=== PATIENT | female | born 1985 | race Caucasian/White ===

== ENCOUNTER 2020-10-06 18:07 | Emergency (ER) | payer BC, MEDICAID, SELFPAY ==
--- NOTE | ~2020-10-06 | XR_ITS ---
EXAMINATION: XR chest 1V DATE: 10/06/2020 19:14 INDICATION: Facial numbness and dizziness. Hypertension. TECHNIQUE: frontal view of the chest was obtained. COMPARISON: Chest radiograph dated 05/21/2019 FINDINGS: The lungs remain clear with no focal airspace opacities, pulmonary edema, pleural effusion or pneumot horax. The cardiomediastinal silhouette is normal. IMPRESSION: 1. No acute cardiopulmonary disease. Reviewed, dictated and finalized at location A. COVERING CONTRACTOR
--- NOTE | ~2020-10-06 | CT_ITS ---
EXAMINATION: CT brain wo con DATE: 10/06/2020 19:10 INDICATION: Right facial numbness and dizziness TECHNIQUE: Computed tomography (CT) of the head was performed without intravenous contrast. Sagittal and coronal reconstructions were performed. The mA was adjusted according to patient size. Iterative reconstruction technique was employed. The dose-length product was 681.00 mGy-cm. COMPARISON: None FINDINGS: No acute intracranial hemorrhage, acute infarction or abnormal extra axial fluid collection. Ventricl es are normal and symmetric. No mass/mass effect. The orbits, paranasal sinuses and mastoid air cells are normal. IMPRESSION: 1. Normal head CT. Reviewed, dictated and finalized at location A. INSPECTOR IMPRESSION: 1. Normal head CT.
[2020-10-06 18:24] VITALS: BP 132/64; PULSE 69; RESP 20; TEMP 36.8; O2SAT 100
--- NOTE | 2020-10-06 18:28 | ECG_ITS ---
Measurements Intervals [place] Rate: 55 P: 8 DE: 141 QRS: 2 QRSD: 133 T: 7 QT: 429 QTc: 413 Interpretive Statements SINUS BRADYCARDIA RIGHT BUNDLE BRANCH BLOCK ABNORMAL ECG Electronically Signed On 10-06-2020 19:22:41 CERTIFIED MEDICAL BILLER by Elder Corcoran D.O.
[2020-10-06 18:40] LABS: Basophils Percent Auto 0.6 % (0.2-1.2); Eosinophils Absolute Auto 0.2 K/mm3 (0-0.3); Eosinophils Percent Auto 2.1 % (0-4.4); Hematocrit 35.4 % (37.0-47.0); Hemoglobin 10.7 g/dL (12.0-15.0); Immature Granulocyte Absolute 0.01 K/mm3 (0.00-0.031); Immature Granulocyte Percent A 0.1 % (0-0.5); Lymphocytes Absolute Auto 2.51 K/mm3 (0.9-3.2); Lymphocytes Percent Auto 34.7 % (18.3-44.2); Mean Corpuscular HGB Conc 30.2 g/dl (32-36); Mean Corpuscular Volume 79.4 fl (80-100); Mean Platelet Volume 10.5 fl (7.4-10.4); Monocytes Absolute Auto 0.6 K/mm3 (0.1-0.6); Monocytes Percent Auto 7.7 % (2.6-8.5); Neutrophils Percent Auto 54.8 % (45.5-73.1); Platelet Count Result 250 k/mm3 (150-375); Red Blood Count 4.46 M/mm3 (4.2-5.4); Red Cell Distribution Width 15.6 % (11.5-14.5); White Blood Count 7.2 K/mm3 (4.5-10.0)
[2020-10-06 18:49] LABS: Prothrombin Time 13.5 Seconds (11.1-14.7)
[2020-10-06 18:50] LABS: Partial Thromboplastin Time 30.7 SECONDS (22.3-36.8)
[2020-10-06 18:51] LABS: Anion Gap 4 mmol/L (8-16); Blood Urea Nitrogen 13 mg/dL (7-17); Calcium 8.6 mg/dL (8.4-10.2); Carbon Dioxide 26 mmol/L (22-30); Chloride 108 mmol/L (98-107); Estimated CRCL calculation 145 ml/min; Estimated Glomerular Filt Rate > 60; Glucose 81 mg/dL (65-105); Potassium 4.1 mmol/L (3.4-5.0); Sodium 138 mmol/L (137-145)
[2020-10-06 19:03] LABS: Troponin I < 0.012 ng/mL (0.000-0.034)
[2020-10-06 19:51] VITALS: BP 135/73; PULSE 53; RESP 21; O2SAT 100
[2020-10-06 20:05] LABS: Glucose Point of Care 98 (65-105)
--- NOTE | 2020-10-06 20:58 | ED.DIZZY ---
HPI - Dizziness General Chief Complaint: Dizziness Stated Complaint: neuro symptoms x 1 week Time Seen by Provider: 10/06/20 20:43 Source: patient Mode of arrival: ambulatory Limitations: no limitations History of Present Illness HPI Narrative: A 35-year-old female presents to the emergency department with complaints tonight of dizziness and lightheadedness. Patient states has been going on for a couple of days where she goes to stand up and feels very dizzy. She notes that it feels like a spinning to the left. Patient denies any numbness or tingling. She denies any other focal deficits. She has no issues with talking or movements. Patient states that the episodes are intermittent, seem to last for about 5 minutes. She does note moving seems to be a trigger for this. Related Data Allergies Allergy/AdvReac Type Severity Reaction Status Date / Time glimepiride [From Amaryl] Allergy Intermediate Other Verified 10/06/20 19:54 Review of Systems Review of Systems: Narrative: CONSTITUTIONAL: Denies fever, chills, or sweats. EYES: Denies visual changes, redness, or discharge. ENT: Denies rhinorrhea, congestion, sore throat, or otalgia. CARDIOVASCULAR: Denies chest pain, palpitations, or edema. RESPIRATORY: Denies cough or dyspnea. GASTROINTESTINAL: Denies abdominal pain, nausea, vomiting, or diarrhea. GENITOURINARY: Denies dysuria or hematuria. SKIN: Denies rash or itching. MUSCULOSKELETAL: Denies back pain, joint pain, or myalgia. NEUROLOGIC: Denies headache, numbness, or weakness. Endorses dizziness PSYCHIATRIC: Denies anxiety or depression. [facility] Past Medical History Medical History (Updated 10/06/20 @ 21:31 by Gumaro Lozano DO) Diabetes High cholesterol Hypertension Surgical History Surgical History History of gastrectomy Family History Family History Sibling Hypertension Father Diabetes mellitus Social History Social History Smoking status: Former smoker Alcohol intake: never Exam Narrative: Exam Narrative: GENERAL: Well-appearing, well-nourished, and in no acute distress. HEAD: Normocephalic, atraumatic. EYES: PERRLA and EOMI. ENT: Nares clear, no rhinorrhea or epistaxis. Mucous membranes moist. Oropharynx without tonsillar hypertrophy exudate or other lesions. Bilateral TMs pearly hylton nonbulging NECK: Supple. No adenopathy or masses. No carotid bruits or JVD CHEST: Clear to auscultation. No respiratory distress. No wheezes rales or rhonchi HEART: Regular rate and rhythm. No murmur heard. Normal peripheral pulses. ABDOMEN: Soft, nontender, nondistended, normal active bowel sounds. EXTREMITIES: Normal range of motion. No edema. SKIN: Warm, dry, no rash. NEURO: No focal deficits. Alert and oriented x3. Positive [place] with leftward nystagmus. Symmetrical sensation, normal gait, equal strength bilaterally in the upper and lower limbs PSYCH: Normal mood and affect. Course Reevaluation(s) Reevaluation #1: Went into the room to update the patient's to her work-up and reevaluate. During this conversation the patient repeatedly said she needed a work note. I suspect this may have been her original reason for presentation. Time: 21:30 Vital Signs Vital signs: Vital Signs Temperature 36.8 C 10/06/20 18:24 Pulse Rate 69 10/06/20 18:24 Respiratory Rate 20 10/06/20 18:24 Blood Pressure 132/64 10/06/20 18:24 Pulse Oximetry 100 10/06/20 18:24 Temperature 36.8 C 10/06/20 21:11 Pulse Rate 57 L 10/06/20 21:11 Respiratory Rate 16 10/06/20 21:11 Blood Pressure 129/70 10/06/20 21:11 Pulse Oximetry 100 10/06/20 21:11 MDM - Dizziness MDM Narrative Medical decision making narrative: In brief this is a 35-year-old female who presented to the emergency department for complaints of dizziness. Patient had a wor
[2020-10-06 21:11] VITALS: BP 129/70; PULSE 57; RESP 16; TEMP 36.8; O2SAT 100
[2020-10-06] MEDS: ONDANSETRON HCL ODT 4 MG TABLET PO (21:11)
[2020-10-06] MEDS: MECLIZINE HCL 25 MG TABLET PO (21:11)
[2020-10-06 21:32] VITALS: BP 140/70; PULSE 57; RESP 16; TEMP 36.8; O2SAT 100
== END 2020-10-06 21:37 | disposition home or self-care (01) ==
PROVIDERS: Emergency Medicine; Emergency Provider Emergency Medicine; PCP Internal Medicine Infectious Disease
DX: H81.10 Benign paroxysmal vertigo, unspecified ear (principal); E11.9 Type 2 diabetes mellitus without complications; E78.5 Hyperlipidemia, unspecified; I10 Essential (primary) hypertension; Z87.891 Personal history of nicotine dependence; I45.10 Unspecified right bundle-branch block; R00.1 Bradycardia, unspecified
CPT/HCPCS: 36415; 70450; 71045; 80048; 82948; 84484; 85025; 85610; 85730; 93005; 99284; A9270

== ENCOUNTER → 2020-11-17 13:47 | Outpatient (CLI) | payer BC, MEDICAID, SELFPAY ==
--- NOTE | ~2020-11-17 | US_ITS ---
US OB <= 14 weeks fetus DATE: 11/17/2020 14:17 INDICATION: Gestational age determination TECHNIQUE: Real-time imaging and Doppler analysis COMPARISON: None FINDINGS: The uterus measures 14.1 cm height, 8.6 cm anteroposterior and 9.0 cm transverse dimension. There is heterogeneous 4.2 x 5.1 x 5.9 cm mass along the anterior fundic area, which likely represent s a uterine fibroid, much less likely a retroplacental bleed. Live villegas intrauterine gestation. heart rate of 147 bpm. Anterior placenta. Biparietal diameter 2.34 cm; 13 weeks 6 days estimated gestational age Head circumference 9.29 cm; 14 weeks 2 days Abdominal circumference 7.51 cm; 14 weeks 0 days Femur length 0.99 cm; 13 weeks 0 days. Composite age by Hadlock formula is 13 weeks 6 days +/- 1 week. DEON by ultrasound is 05/19/2021, [place] red to 06/21/2021 by LMP. Estimated weight is 78 +/- 11 0.7 g. Head circumference/abdominal circumference 1.24, within normal range of 1.10-1.34. Right ovary measures 6.6 x 4.4 x 4.5 cm with a 2.8 x 2.7 x 3.3 cm cyst. Left ovary is demonstrated. N o pelvic free fluid collection is evident. IMPRESSION: Estimated gestational age of 13 weeks 6 days +/- 1 week; DEON by ultrasound is 05/19/2021 Heterogeneous 4.2 x 5.1 x 5.9 cm mass along the fundic area of the uterus, possibly a uterine fibroid . Follow-up ultrasound imaging is recommended. Reviewed, dictated and finalized at Location A. Reviewed, dictated and finalized at location A. [employer] IMPRESSION: Estimated gestational age of 13 weeks 6 days +/- 1 week; DEON by ult rasound is 05/19/2021 Heterogeneous 4.2 x 5.1 x 5.9 cm mass along the fundic area of the uterus, poss ibly a uterine fibroid. Follow-up ultrasound imaging is recommended.
== END ==
PROVIDERS: Visit Provider Obstetrics & Gynecology
DX: Z34.91 Encounter for supervision of normal pregnancy, unspecified, first trimester (principal); Z3A.13 13 weeks gestation of pregnancy
CPT/HCPCS: 76801

== ENCOUNTER 2020-11-30 13:45 | Emergency (ER) | payer BC, SELFPAY ==
[2020-11-30 13:58] VITALS: BP 132/57; PULSE 71; RESP 20; TEMP 36.6; O2SAT 100
[2020-11-30 14:47] VITALS: BP 126/60; PULSE 70; RESP 20; O2SAT 100
--- NOTE | 2020-11-30 14:50 | ED.ABDPAIN ---
HPI - Abdominal Pain General Chief Complaint: Abdominal Pain Stated Complaint: abd pain- 16 weeks Time Seen by Provider: 11/30/20 14:33 Source: patient Mode of arrival: ambulatory Limitations: no limitations History of Present Illness HPI narrative: Patient is a 35-year-old female, at 16 weeks age of gestation, complaining of lower abdominal pain, 5 out of 10, dull aching, nonradiating started today. Patient denies any vaginal bleeding or discharge. Patient denies any nausea, vomiting, diarrhea, fever or chills. Patient states that she is had care and first trimester ultrasound. Related Data Allergies Allergy/AdvReac Type Severity Reaction Status Date / Time glimepiride [From Amaryl] Allergy Intermediate Other Verified 11/30/20 14:30 Review of Systems Review of Systems: All systems reviewed & are unremarkable except as noted in HPI and below Constitutional: Constitutional: Denies body ache(s), Denies chills, Denies excessive sweating, Denies fatigue, Denies fever(s), Denies headache(s), Denies lethargy, Denies malaise, Denies weakness and Denies weight loss Eyes: Eyes: Denies blurry vision, Denies change in vision and Denies loss of vision ENT: Denies dizziness, Denies ear discharge, Denies headache(s), Denies lip swelling, Denies epistaxis, Denies nasal congestion, Denies neck pain, Denies throat swelling and Denies tongue swelling Cardiovascular: Cardiovascular: Denies chest pain, Denies chest pain at rest, Denies chest pain with activity, Denies diaphoresis, Denies rapid heart rate, Denies edema, Denies irregular heart rhythm, Denies lightheadedness, Denies palpitations, Denies dyspnea and Denies dyspnea on exertion Respiratory: Respiratory: Denies chest congestion, Denies cough, Denies hemoptysis, Denies dyspnea and Denies dyspnea on exertion Gastrointestinal: Gastrointestinal: Denies melena, Denies hematochezia, Denies diarrhea, Denies nausea, Denies vomiting and Denies hematemesis Musculoskeletal: Musculoskeletal: Denies abnormal gait, Denies deformity, Denies joint swelling, Denies limited range of motion, Denies neck pain and Denies numbness Neurologic: Denies Abnormal speech present, Denies abnormal gait, Denies confusion, Denies dizziness, Denies headache(s), Denies focal weakness, Denies loss of vision, Denies numbness, Denies Other visual disturbances, Denies Sensory deficit (Neuro) and Denies weakness Psychiatric: Psychiatric: Denies confusion, Denies depression, Denies auditory hallucinations, Denies homicidal ideation and Denies suicidal ideation Endocrine: Endocrine: Denies cold intolerance, Denies excessive sweating, Denies fatigue, Denies heat intolerance and Denies palpitations Hematologic/Lymphatic: Hematologic/Lymphatic: Denies easy bleeding and Denies easy bruising Allergic/Immunologic: Allergic/Immunologic: Denies lip swelling, Denies throat swelling and Denies tongue swelling PMFSH Past Medical History Medical History (Updated 11/30/20 @ 15:44 by Craig Shen MD) Diabetes High cholesterol Hypertension Surgical History Surgical History History of gastrectomy Family History Family History Sibling Hypertension Father Diabetes mellitus Social History Social History Smoking status: Former smoker Alcohol intake: never Gender identity (if verbalized by the patient): Female Exam Const: General: cooperative, healthy appearing, comfortable, no acute distress, well developed, alert and awake; No confusion Orientation/consciousness: oriented to person, oriented to place, oriented to time, patient oriented x3 and No confusion Limitations: no limitations HENMT: Head: normal to inspection, normocephalic and atraumatic Ears: hearing grossly normal bilaterally, TM normal on the right and TM normal on the le
[2020-11-30 15:00] LABS: Basophils Percent Auto 0.3 % (0.2-1.2); Eosinophils Absolute Auto 0.1 K/mm3 (0-0.3); Eosinophils Percent Auto 0.5 % (0-4.4); Hematocrit 30.6 % (37.0-47.0); Hemoglobin 9.5 g/dL (12.0-15.0); Immature Granulocyte Absolute 0.02 K/mm3 (0.00-0.031); Immature Granulocyte Percent A 0.2 % (0-0.5); Lymphocytes Percent Auto 21.3 % (18.3-44.2); Mean Corpuscular Hemoglobin 23.7 pg (26-34); Mean Corpuscular Volume 76.3 fl (80-100); Mean Platelet Volume 10.5 fl (7.4-10.4); Monocytes Absolute Auto 0.6 K/mm3 (0.1-0.6); Monocytes Percent Auto 5.7 % (2.6-8.5); Neutrophils Absolute Auto 7.1 K/mm3 (1.3-6.7); Platelet Count Result 271 k/mm3 (150-375); Red Blood Count 4.01 M/mm3 (4.2-5.4); Red Cell Distribution Width 16.3 % (11.5-14.5); White Blood Count 9.8 K/mm3 (4.5-10.0)
[2020-11-30 15:11] LABS: Add Urine Microscopic? YES; Appearance Urine Cloudy (Clear); Bacteria Urine Trace /hpf; Bilirubin Urine Negative (Negative); Blood Urine Negative (Negative); Color Urine Yellow (Yellow); Glucose Urine UA Negative (Negative); Ketones Urine Negative (Negative); Leukocyte Esterase Ur Negative LEU/UL (Negative); Mucus Urine Rare /lpf; Nitrate Urine Negative (Negative); Protein Urine 1+ mg/dL (Negative); RBC Urine 0-2 /hpf (0-2); Squamous Epithelial Cell Urine Many /hpf (Few); Transitional Epi Cells Urine Rare /hpf (None Seen); Urobilinogen Urine Negative mg/dL (<2.0); WBC Urine 0-3 /hpf
[2020-11-30 15:14] LABS: Alanine Aminotransferase 11 U/L (4-35); Albumin Level 3.6 g/dL (3.5-5.1); Alkaline Phosphatase 48 U/L (38-126); Anion Gap 6 mmol/L (8-16); Aspartate Amino Transferase 20 U/L (14-36); Bilirubin,Total 0.3 mg/dL (0.2-1.3); Blood Urea Nitrogen 10 mg/dL (7-17); Calcium 8.7 mg/dL (8.4-10.2); Carbon Dioxide 23 mmol/L (22-30); Chloride 109 mmol/L (98-107); Estimated CRCL calculation 175 ml/min; Estimated Glomerular Filt Rate > 60; Glucose 96 mg/dL (65-105); Lipase 96 U/L (23-300); Potassium 3.7 mmol/L (3.4-5.0); Sodium 138 mmol/L (137-145)
[2020-11-30 16:20] VITALS: BP 122/68; PULSE 78; RESP 18; O2SAT 99
== END 2020-11-30 16:21 | disposition home or self-care (01) ==
PROVIDERS: Emergency Provider Emergency Medicine; PCP Internal Medicine Infectious Disease
DX: O26.892 Other specified pregnancy related conditions, second trimester (principal); R10.30 Lower abdominal pain, unspecified; O24.312 Unspecified pre-existing diabetes mellitus in pregnancy, second trimester; O16.9 Unspecified maternal hypertension, unspecified trimester; O99.282 Endocrine, nutritional and metabolic diseases complicating pregnancy, second trimester; E78.00 Pure hypercholesterolemia, unspecified; Z3A.16 16 weeks gestation of pregnancy; Z87.891 Personal history of nicotine dependence; Z90.3 Acquired absence of stomach [part of]
CPT/HCPCS: 36415; 80053; 81001; 81025; 83690; 84702; 85025; 99283

== ENCOUNTER 2021-03-04 08:59 | Outpatient (CLI) | payer BC, SELFPAY ==
--- NOTE | ~2021-03-04 | US_ITS ---
EXAMINATION:US venous doppler LE BI INDICATION:There are scattered pains with bilateral lower extremity pain. TECHNIQUE: Multiple grayscale, color flow and Doppler images of the lower extremity deep venous syste ms were obtained and reviewed. COMPARISON:No prior studies for comparison. FINDINGS: The common femoral, superficial femoral and popliteal veins demonstrate normal respiratory variation, augmentation and compressibility. Color flow is also seen within the posterior tibial, pe roneal, greater saphenous and profunda veins. IMPRESSION: 1: No lower extremity deep venous thrombosis. Reviewed, dictated and finalized at location B.
== END 2021-03-04 09:00 | disposition home or self-care (01) ==
PROVIDERS: PCP Internal Medicine Infectious Disease; Visit Provider Obstetrics & Gynecology Obstetrics
DX: I83.813 Varicose veins of bilateral lower extremities with pain (principal); M79.604 Pain in right leg
CPT/HCPCS: 93970

== ENCOUNTER 2021-04-13 13:21 | Emergency (ER) | payer BC, SELFPAY ==
[2021-04-13] VITALS (12 sets, daily range): BP systolic 149–186; BP diastolic 81–94; PULSE 80–94; RESP 14–25; TEMP 36.8; O2SAT 96–99
--- NOTE | ~2021-04-13 | US_ITS ---
EXAMINATION: US venous doppler LE EXAM DATE: 04/13/2021 16:54 INDICATION: Edema, . Feet swelling. TECHNIQUE: Multiple grayscale, color flow and Doppler images of the lower extremity deep venous syste ms bilaterally were obtained and reviewed. Comparison is made to prior examination from 03/04/2021. FINDINGS: Right side: The right common femoral, femoral and profunda veins demonstrate normal color flow, respi ratory variation, augmentation and compressibility. Compressibility, color flow confirmed within the right popliteal, posterior tibial, peroneal, and greater saphenous veins. Left side: The left common femoral, femoral and profunda veins demonstrate normal color flow, respira tory variation, augmentation and compressibility. Compressibility, color flow confirmed within the l eft popliteal, posterior tibial, peroneal, and greater saphenous veins. IMPRESSION: 1. No lower extremity deep venous thrombosis bilaterally. Reviewed, dictated and finalized at location A.
--- NOTE | ~2021-04-13 | XR_ITS ---
EXAMINATION: XR chest 2V DATE: 04/13/2021 14:07 INDICATION: Cough and congestion TECHNIQUE: PA and lateral views of the chest are obtained. COMPARISON: 10/06/2020 FINDINGS: The lungs are free of acute opacities. There is no pleural effusion or pneumothorax. The ca rdiomediastinal silhouette is normal. There are bridging osteophytes at multiple levels in the spine, consistent with diffuse idiopathic skeletal hyperostosis (DISH). IMPRESSION: 1. No acute cardiopulmonary abnormality. Reviewed, dictated and finalized at location B.
--- NOTE | 2021-04-13 13:51 | ECG_ITS ---
Measurements Intervals [place] Rate: 77 P: -6 PA: 156 QRS: -17 QRSD: 142 T: 9 QT: 393 QTc: 445 Interpretive Statements SINUS RHYTHM RIGHT BUNDLE BRANCH BLOCK BASELINE ARTIFACT- AVR, AVL, AVF ABNORMAL ECG Electronically Signed On 04-13-2021 14:52:32 CDT by Elder Corcoran D.O.
[2021-04-13 14:06] LABS: Basophils Percent Auto 0.3 % (0.2-1.2); Eosinophils Absolute Auto 0.2 K/mm3 (0-0.3); Eosinophils Percent Auto 1.6 % (0-4.4); Hemoglobin 12.9 g/dL (12.0-15.0); Immature Granulocyte Absolute 0.03 K/mm3 (0.00-0.031); Immature Granulocyte Percent A 0.3 % (0-0.5); Lymphocytes Absolute Auto 1.91 K/mm3 (0.9-3.2); Lymphocytes Percent Auto 18.4 % (18.3-44.2); Mean Corpuscular HGB Conc 33.1 g/dl (32-36); Mean Corpuscular Hemoglobin 30.4 pg (26-34); Mean Platelet Volume 9.1 fl (7.4-10.4); Monocytes Absolute Auto 0.7 K/mm3 (0.1-0.6); Monocytes Percent Auto 7.1 % (2.6-8.5); Neutrophils Absolute Auto 7.5 K/mm3 (1.3-6.7); Neutrophils Percent Auto 72.3 % (45.5-73.1); Platelet Count Result 227 k/mm3 (150-375); Red Blood Count 4.24 M/mm3 (4.2-5.4); Red Cell Distribution Width 15.4 % (11.5-14.5); White Blood Count 10.4 K/mm3 (4.5-10.0)
[2021-04-13 14:18] LABS: Anion Gap 5 mmol/L (8-16); Blood Urea Nitrogen 7 mg/dL (7-17); Calcium 9.2 mg/dL (8.4-10.2); Carbon Dioxide 24 mmol/L (22-30); Chloride 108 mmol/L (98-107); Estimated CRCL calculation 231 ml/min; Estimated Glomerular Filt Rate > 60; Glucose 88 mg/dL (65-110); Potassium 3.6 mmol/L (3.4-5.0); Sodium 137 mmol/L (137-145)
[2021-04-13 14:26] LABS: NT Pro B Type Natriuretic Pept 35 pg/mL (5-100)
--- NOTE | 2021-04-13 15:33 | ED.SOB ---
HPI - SOB/Dyspnea General Chief Complaint: Shortness of Breath/Dyspnea Stated Complaint: diff breathing/cold symptoms Time Seen by Provider: 04/13/21 15:08 Source: patient Mode of arrival: ambulatory Limitations: no limitations History of Present Illness HPI Narrative: This is a 36 year old that presents to the ER for cold symptoms ongoing over the last 4 days. Reports congestion, cough, and rhinorrhea. Reports feeling short of breath, especially with exertion. Reports swelling in her lower extremities which has been ongoing for some time. Denies fever, chest pain or erythema. Related Data Home Medications Medication Instructions Recorded Confirmed calcium carbonate-vitamin D3 600 cap PO 03/31/21 04/02/21 mg calcium-200 unit capsule docusate sodium 100 mg capsule 100 mg PO DAILY 03/31/21 04/02/21 ferrous sulfate 325 mg (65 mg 325 mg PO DAILY 03/31/21 04/02/21 iron) tablet folic acid 1 mg tablet 1 mg PO DAILY 03/31/21 04/02/21 omeprazole 20 mg capsule,delayed 20 mg PO DAILY 03/31/21 04/02/21 release prenat.vits,dutch,fpp-jvho-jbqvx 1 tablet PO DAILY 03/31/21 04/02/21 progesterone micronized 100 mg 100 mg PO QAM 03/31/21 04/02/21 capsule Allergies Allergy/AdvReac Type Severity Reaction Status Date / Time glimepiride [From Amaryl] Allergy Intermediate Other Verified 04/13/21 14:42 Review of Systems Review of Systems: Narrative: CONSTITUTIONAL: Denies fever CARDIOVASCULAR: Reports edema. Denies chest pain RESPIRATORY: Reports cough and dyspnea. GENITOURINARY: Denies dysuria All systems reviewed & are unremarkable except as noted in HPI and below PMFSH Past Medical History Medical History Diabetes High cholesterol Hypertension Surgical History Surgical History History of gastrectomy Hx of ventral hernia repair Family History Family History Sibling Hypertension Father Diabetes mellitus Social History Social History Smoking status: Current every day smoker Alcohol intake: never Gender identity (if verbalized by the patient): Female Exam Narrative: Exam Narrative: GENERAL: Well-appearing, obese, and in no acute distress. HEAD: Normocephalic, atraumatic. EYES: EOMI. ENT: Nares clear, no rhinorrhea or epistaxis. Mucous membranes moist. Oropharynx without tonsillar hypertrophy exudate or other lesions. Bilateral TMs pearly hylton non-bulging NECK: Supple. No adenopathy or masses. CHEST: No respiratory distress. Scattered wheezes. No rales or rhonchi HEART: Regular rate and rhythm. No murmur heard. Normal peripheral pulses. ABDOMEN: Gravid, nontender, nondistended, normal active bowel sounds. Large ventral hernia present EXTREMITIES: Normal range of motion. No edema. SKIN: Warm, dry, no rash. NEURO: No focal deficits. Alert and oriented x3. PSYCH: Normal mood and affect Course Vital Signs Vital signs: Vital Signs Temperature 98.3 F 04/13/21 13:52 Pulse Rate 87 04/13/21 13:52 Respiratory Rate 14 04/13/21 13:52 Blood Pressure 160/85 H 04/13/21 13:52 Pulse Oximetry 99 04/13/21 13:52 Temperature 98.3 F 04/13/21 13:52 Pulse Rate 83 04/13/21 18:19 Respiratory Rate 19 04/13/21 18:19 Blood Pressure 163/93 H 04/13/21 18:19 Pulse Oximetry 98 04/13/21 18:19 MDM - SOB/Dyspnea MDM Narrative Medical decision making narrative: Patient presents the emergency department for cold symptoms ongoing over the last 4 days, 35 weeks . Also reporting shortness of breath. She is afebrile and nontoxic-appearing. Scattered wheezes were noted on arrival, patient reports improvement in her symptoms with nebulizer treatment. Blood pressure elevated to 140s-160s systolic. Patient does report she has intermittently had elevated blood pressures this preg
[2021-04-13] MEDS: IPRATROPIUM BR 0.02% INH SOLN 0.5 MG/2.5 ML VIAL INHALATION (15:50)
[2021-04-13] MEDS: ALBUTEROL SULFATE NEB 2.5 MG/0.5 ML INH 5 MG INHALATION (15:50)
[2021-04-13] MEDS: predniSONE 20 MG TABLET 40 MG PO (16:02)
[2021-04-13 16:13] LABS: Add Urine Microscopic? YES; Appearance Urine Cloudy (Clear); Bacteria Urine Trace /hpf; Bilirubin Urine Negative (Negative); Blood Urine Negative (Negative); Color Urine Amber (Yellow); Glucose Urine UA 1+ mg/dL (Negative); Ketones Urine Trace mg/dL (Negative); Leukocyte Esterase Ur 3+ LEU/UL (Negative); Mucus Urine Few /lpf; Nitrate Urine Negative (Negative); Protein Urine 1+ mg/dL (Negative); Squamous Epithelial Cell Urine Many /hpf (Few); WBC Urine 51-75 /hpf
[2021-04-13 16:33] LABS: Alanine Aminotransferase 14 U/L (4-35); Albumin Level 3.5 g/dL (3.5-5.1); Alkaline Phosphatase 109 U/L (38-126); Aspartate Amino Transferase 24 U/L (14-36); Bilirubin,Total 0.5 mg/dL (0.2-1.3)
[2021-04-13] MEDS: hydrALAZINE HCL 20 MG/ML VIAL 10 MG IV PUSH (17:59)
== END 2021-04-13 19:36 | disposition home or self-care (01) ==
PROVIDERS: Physician Assistant; Emergency Provider Emergency Medicine; PCP Internal Medicine Infectious Disease
DX: O99.513 Diseases of the respiratory system complicating pregnancy, third trimester (principal); J20.9 Acute bronchitis, unspecified; O23.13 Infections of bladder in pregnancy, third trimester; O16.3 Unspecified maternal hypertension, third trimester; O99.283 Endocrine, nutritional and metabolic diseases complicating pregnancy, third trimester; E78.00 Pure hypercholesterolemia, unspecified; Z3A.35 35 weeks gestation of pregnancy; I45.10 Unspecified right bundle-branch block
CPT/HCPCS: 36415; 71046; 80048; 80076; 81001; 83880; 85025; 87086; 87088; 93005; 93970; 94640; 96374; 99284; J0360; J7512

== ENCOUNTER 2021-04-17 07:17 | Outpatient (RCR) | payer BC, SELFPAY ==
[2021-04-17 08:05] VITALS: BP 134/75; PULSE 76
== END 2021-06-28 07:33 | disposition home or self-care (01) ==
LOC: ANHOBOP 07:17
PROVIDERS: PCP Internal Medicine Infectious Disease; Visit Provider Obstetrics & Gynecology
DX: O16.3 Unspecified maternal hypertension, third trimester (principal); Z3A.36 36 weeks gestation of pregnancy
CPT/HCPCS: 59025

== ENCOUNTER 2021-12-04 13:26 | Emergency (ER) | payer BC, SELFPAY ==
[2021-12-04] VITALS (19 sets, daily range): BP systolic 127–155; BP diastolic 79–108; PULSE 60–77; RESP 15–18; TEMP 35.9; O2SAT 96–100
--- NOTE | ~2021-12-04 | XR_ITS ---
EXAMINATION: XR chest 2V DATE: 12/04/2021 14:19 INDICATION: Chest pain. TECHNIQUE: Frontal and lateral views of the chest were obtained. COMPARISON: Chest 2 views 04/13/2021, CT abdomen and pelvis 06/05/2013 FINDINGS: The chest demonstrates clear lungs without pneumonia, pleural effusion, or pneumothorax. Th e heart size is normal. There is mild chronic anterior wedging of multiple vertebral bodies. IMPRESSION: 1. No acute cardiopulmonary disease. Reviewed, dictated and finalized at location A. CHMENT TEACHER
--- NOTE | 2021-12-04 13:31 | ECG_ITS ---
Measurements Intervals [place] Rate: 69 P: 41 [place]: 162 QRS: -19 QRSD: 150 T: 2 QT: 437 QTc: 470 Interpretive Statements SINUS RHYTHM WITH SINUS ARRHYTHMIA RIGHT BUNDLE BRANCH BLOCK [120+ ms QRS DURATION, UPRIGHT V1, 40+ ms S IN I/aVL/V4/V5/V6] COMPARED TO ECG 04/13/2021 14:45:46 SINUS ARRHYTHMIA NOW PRESENT Electronically Signed On 12-04-2021 19:34:08 METALSMITH HELPER by Val Chavis M.D.
[2021-12-04 13:43] LABS: Basophils Absolute Auto 0.1 K/mm3 (0.0-0.1); Basophils Percent Auto 1.1 % (0.2-1.2); Eosinophils Absolute Auto 0.1 K/mm3 (0-0.3); Eosinophils Percent Auto 2.1 % (0-4.4); Hematocrit 39.7 % (37.0-47.0); Hemoglobin 12.6 g/dL (12.0-15.0); Immature Granulocyte Absolute 0.01 K/mm3 (0.00-0.031); Immature Granulocyte Percent A 0.2 % (0-0.5); Lymphocytes Absolute Auto 2.82 K/mm3 (0.9-3.2); Lymphocytes Percent Auto 44.7 % (18.3-44.2); Mean Corpuscular HGB Conc 31.7 g/dl (32-36); Mean Corpuscular Hemoglobin 27.8 pg (26-34); Mean Corpuscular Volume 87.6 fl (80-100); Monocytes Absolute Auto 0.4 K/mm3 (0.1-0.6); Monocytes Percent Auto 6.5 % (2.6-8.5); Neutrophils Absolute Auto 2.9 K/mm3 (1.3-6.7); Neutrophils Percent Auto 45.4 % (45.5-73.1); Platelet Count Result 289 k/mm3 (150-375); Red Blood Count 4.53 M/mm3 (4.2-5.4); Red Cell Distribution Width 13.1 % (11.5-14.5); White Blood Count 6.3 K/mm3 (4.5-10.0)
[2021-12-04 13:53] LABS: INR 1.1; Prothrombin Time 13.3 Seconds (11.1-14.7)
[2021-12-04 13:54] LABS: Partial Thromboplastin Time 31.1 SECONDS (22.3-36.8)
[2021-12-04 14:02] LABS: Alanine Aminotransferase 16 U/L (4-35); Albumin Level 4.1 g/dL (3.5-5.1); Alkaline Phosphatase 63 U/L (38-126); Anion Gap 5 mmol/L (8-16); Aspartate Amino Transferase 25 U/L (14-36); Bilirubin,Total 0.4 mg/dL (0.2-1.3); Blood Urea Nitrogen 16 mg/dL (7-17); Calcium 8.2 mg/dL (8.4-10.2); Carbon Dioxide 26 mmol/L (22-30); Chloride 108 mmol/L (98-107); Estimated CRCL calculation 124 ml/min; Estimated Glomerular Filt Rate > 60; Glucose 86 mg/dL (65-110); Lipase 122 U/L (23-300); Potassium 3.6 mmol/L (3.4-5.0); Sodium 139 mmol/L (137-145)
[2021-12-04] MEDS: ASPIRIN 81 MG CHEWABLE TABLET 324 MG PO (14:05)
[2021-12-04 14:13] LABS: Troponin I < 0.012 ng/mL (0.000-0.034)
--- NOTE | 2021-12-04 15:47 | ED.CHESTPAIN ---
HPI - Chest Pain General Chief Complaint: Chest Pain Stated Complaint: chest pain Time Seen by Provider: 12/04/21 13:53 History of Present Illness HPI narrative: Patient is a 36-year-old female who presents ER with left side chest pain. Ongoing over the last 24 hours. Aching in her upper chest moving to her left shoulder. Unsure of aggravating factors. No alleviating factors. No acid reflux. No dyspnea on exertion or exertional chest pain. No productive cough. No cardiac history but has brother had an AR in his 30s. Patient has seen a machine assembler and has had cardiology clearance in the past for weight loss surgery. No palpitations. Related Data Home Medications Medication Instructions Recorded Confirmed calcium carbonate 600 mg-vitamin cap PO 03/31/21 04/02/21 D3 5 mcg (200 unit) capsule docusate sodium 100 mg capsule 100 mg PO DAILY 03/31/21 04/02/21 ferrous sulfate 325 mg (65 mg 325 mg PO DAILY 03/31/21 04/02/21 iron) tablet folic acid 1 mg tablet 1 mg PO DAILY 03/31/21 04/02/21 omeprazole 20 mg capsule,delayed 20 mg PO DAILY 03/31/21 04/02/21 release prenat.vits,dutch,sao-tavk-qmopq 1 tablet PO DAILY 03/31/21 04/02/21 progesterone micronized 100 mg 100 mg PO QAM 03/31/21 04/02/21 capsule Allergies Allergy/AdvReac Type Severity Reaction Status Date / Time glimepiride [From Amaryl] Allergy Intermediate Other Verified 12/04/21 13:54 Review of Systems Review of Systems: All systems reviewed & are unremarkable except as noted in HPI and below Constitutional: Constitutional: Denies chills, Denies fever(s) and Denies weakness ENT: Denies nasal congestion and Denies sore throat Cardiovascular: Cardiovascular: Reports chest pain, Denies rapid heart rate and Denies radiating jaw, neck or arm pain Respiratory: Respiratory: Denies cough, Denies dyspnea and Denies wheezing Gastrointestinal: Gastrointestinal: Denies abdominal pain, Denies nausea and Denies vomiting Musculoskeletal: Musculoskeletal: Denies arthralgias and Denies joint swelling [facility] Past Medical History Medical History Diabetes High cholesterol Hypertension Surgical History Surgical History History of gastrectomy Hx of ventral hernia repair Family History Family History Sibling Hypertension Father Diabetes mellitus Social History Social History Smoking status: Current every day smoker Alcohol intake: never Gender identity (if verbalized by the patient): Female Exam Narrative: GENERAL: Well-appearing, obese, and in no acute distress. HEAD: Normocephalic, atraumatic. EYES: PERRL and EOMI. ENT: Mucous membranes moist. CHEST: Clear to auscultation. No respiratory distress. HEART: Regular rate and rhythm. Normal peripheral pulses. ABDOMEN: Soft, nontender, nondistended. EXTREMITIES: Normal range of motion. No edema. SKIN: Warm, dry, no rash. NEURO: Alert and oriented x3. PSYCH: Normal mood and affect. Course Course Emergency Course: Patient resting comfortably. Informed results. Negative troponin with EKG with nonspecific T wave flattening. Recommend follow-up with her machine assembler. Patient verbalized understanding. Vital Signs Vital signs: Vital Signs Temperature 96.6 F L 12/04/21 13:31 Pulse Rate 77 12/04/21 13:31 Respiratory Rate 18 12/04/21 13:31 Blood Pressure 138/108 H 12/04/21 13:31 Pulse Oximetry 100 12/04/21 13:31 Temperature 96.6 F L 12/04/21 13:31 Pulse Rate 66 12/04/21 13:53 Respiratory Rate 18 12/04/21 13:31 Blood Pressure 138/108 H 12/04/21 13:31 Pulse Oximetry 100 12/04/21 13:31 MDM - Chest Pain Lab Data Result diagrams: 12/04/21 13:37 12/04/21 13:37 Labs: Lab Results 12/04/21 12/04/21 12/04/21
== END 2021-12-04 16:21 | disposition home or self-care (01) ==
PROVIDERS: Emergency Provider Emergency Medicine; PCP Internal Medicine Infectious Disease
DX: R07.9 Chest pain, unspecified (principal); E11.9 Type 2 diabetes mellitus without complications; E78.00 Pure hypercholesterolemia, unspecified; I10 Essential (primary) hypertension; F17.200 Nicotine dependence, unspecified, uncomplicated; I45.10 Unspecified right bundle-branch block
CPT/HCPCS: 36415; 71046; 80053; 83690; 84484; 85025; 85610; 85730; 93005; 99284; A9270

== ENCOUNTER 2022-03-03 10:15 | Outpatient (CLI) | payer BC, SELFPAY ==
--- NOTE | ~2022-03-03 | CT_ITS ---
EXAMINATION: CT abdomen wo con DATE: 03/03/2022 10:29 INDICATION: With obstruction TECHNIQUE: Computed tomography (CT) of the abdomen was performed without intravenous contrast. Automa ramon exposure control and iterative reconstruction technique were employed. Exam dose: 1009.84 mGy-cm total exam DLP. COMPARISON: 06/05/2013 CT abdomen pelvis FINDINGS: The lung bases are clear. Normal heart size. No pericardial or pleural effusion. Fat-containing foramen of Morgagni hernia is noted. The liver, spleen, pancreas, adrenal glands and kidneys are unremarkable on this limited noncontrast examination. The gallbladder is not identified. No bile duct or pancreatic duct dilatation. No urinary tract calculus or hydroureteronephrosis. There is approximately 7 cm wide neck of an approximately 7.6 cm AP, 12.8 cm vertical and 16.5 cm wid e right upper mid ventral abdominal wall hernia which contains a long loop of transverse colon as wel l as fat. No bowel obstruction or strangulation is evident. There is a loop of nonobstructed nonstrangulated small bowel bowel within an umbilical hernia with an approximately 3 cm wide neck, the umbilical hernia measuring up to 6.4 cm transverse and 4 cm dick posterior dimension There is postoperative change of the stomach consistent with gastric bypass surgery. No bowel obstruction or bowel wall thickening, pneumatosis or intraperitoneal free air is detected. Normal caliber of the abdominal aorta. No intraperitoneal or retroperitoneal mass lesion or adenopath y or ascites. No osteolytic or osteoblastic lesions are noted. Diffuse idiopathic skeletal hyperostosis of the lower thoracic and upper lumbar spine. IMPRESSION: 7.6 x 12.8 x 16.5 cm right upper ventral abdominal wall hernia containing a long loop of transverse colon without obstruction or strangulation 6.4 x 4 cm umbilical hernia containing a nonobstructed nonstrangulated loop of small bowel Probable cholecystectomy Status post gastric bypass surgery Reviewed, dictated and finalized at [facility]. Reviewed, dictated and finalized at [facility]. IMPRESSION: 7.6 x 12.8 x 16.5 cm right upper ventral abdominal wall hernia con taining a long loop of transverse colon without obstruction or strangulation 6.4 x 4 cm umbilical hernia containing a nonobstructed nonstrangulated loop of small bowel Probable cholecystectomy Status post gastric bypass surgery
== END 2022-03-03 10:16 | disposition home or self-care (01) ==
PROVIDERS: PCP Internal Medicine Infectious Disease; Visit Provider Surgery
DX: K43.0 Incisional hernia with obstruction, without gangrene (principal); K42.9 Umbilical hernia without obstruction or gangrene
CPT/HCPCS: 74150

== ENCOUNTER 2022-04-27 20:17 | Emergency (ER) | payer BC, SELFPAY ==
[2022-04-27 20:21] VITALS: BP 163/70; PULSE 58; RESP 16; TEMP 36.6; O2SAT 98
[2022-04-27 21:25] LABS: Basophils Absolute Auto 0.1 K/mm3 (0.0-0.1); Basophils Percent Auto 0.7 % (0.2-1.2); Eosinophils Absolute Auto 0.3 K/mm3 (0-0.3); Eosinophils Percent Auto 3.6 % (0-4.4); Hematocrit 35.5 % (37.0-47.0); Hemoglobin 10.7 g/dL (12.0-15.0); Immature Granulocyte Absolute 0.01 K/mm3 (0.00-0.031); Immature Granulocyte Percent A 0.1 % (0-0.5); Lymphocytes Absolute Auto 2.13 K/mm3 (0.9-3.2); Lymphocytes Percent Auto 30.5 % (18.3-44.2); Mean Corpuscular HGB Conc 30.1 g/dl (32-36); Mean Corpuscular Hemoglobin 25.2 pg (26-34); Mean Corpuscular Volume 83.5 fl (80-100); Mean Platelet Volume 10.5 fl (7.4-10.4); Monocytes Absolute Auto 0.5 K/mm3 (0.1-0.6); Monocytes Percent Auto 7.6 % (2.6-8.5); Neutrophils Percent Auto 57.5 % (45.5-73.1); Platelet Count Result 309 k/mm3 (150-375); Red Blood Count 4.25 M/mm3 (4.2-5.4); Red Cell Distribution Width 14.9 % (11.5-14.5)
[2022-04-27 21:28] LABS: Appearance Urine Cloudy (Clear); Bilirubin Urine 1+ (Negative); Blood Urine 3+ (Negative); Color Urine Yellow (Yellow); Glucose Urine UA Negative (Negative); Ketones Urine Negative (Negative); Leukocyte Esterase Ur Negative LEU/UL (Negative); Nitrate Urine Negative (Negative); Protein Urine 1+ mg/dL (Negative); Specific Grav Ur >= 1.030 (1.001-1.035); Urobilinogen Urine 0.2 mg/dL (<2.0); pH Urine 5.5 (5.0-9.0)
[2022-04-27 21:36] LABS: Mucus Urine Rare /lpf; RBC Urine >75 /hpf (0-2); Squamous Epithelial Cell Urine Few /hpf (Few)
[2022-04-27 21:37] LABS: Add Urine Microscopic? YES
--- NOTE | 2022-04-27 22:45 | PC.NURSE ---
pt reports spotting noticed 04/23/2022. pt reports [facility] on 04/27/2022 and was told that she had a UTI.
[2022-04-27 22:47] VITALS: BP 134/76; PULSE 68; RESP 18; O2SAT 100
--- NOTE | 2022-04-27 23:14 | ED.GENADULT ---
HPI - General Adult General Chief complaint: Vaginal Bleeding Stated complaint: 6 wks preg with vag bldg Time Seen by Provider: 04/27/22 22:03 History of Present Illness HPI narrative: Patient is a 37-year-old female who presents ER with spotting. Ongoing for 2 days. Was evaluated at [facility] yesterday. She had an ultrasound that showed an IUP at 6 weeks and 1 day. She is post follow-up with an OB in [place]. She had no spotting today until this evening when she left at her panty liner and noticed a red spot. She was told she had a UTI that was causing her bleeding. She has been started on Macrobid. No abdominal pain or nausea or vomiting. No fever chills or sweats. Patient is known to be positive. Patient is a G2, P1. Related Data Home Medications Medication Instructions Recorded Confirmed calcium carbonate 600 mg-vitamin cap PO 03/31/21 02/23/22 D3 5 mcg (200 unit) capsule prenat.vits,dutch,[id number] 1 tablet PO DAILY 03/31/21 02/23/22 Allergies Allergy/AdvReac Type Severity Reaction Status Date / Time glimepiride [From Amaryl] Allergy Intermediate Other Verified 04/27/22 20:25 Review of Systems Review of Systems: All systems reviewed & are unremarkable except as noted in HPI and below Constitutional: Constitutional: Denies chills and Denies fever(s) ENT: Denies nasal congestion and Denies sore throat Gastrointestinal: Gastrointestinal: Denies abdominal pain, Denies nausea and Denies vomiting Genitourinary: Genitourinary: Reports abnormal vaginal bleeding, Reports hematuria, Reports nocturia, Denies dysuria and Denies flank pain PMF Past Medical History Medical History Diabetes High cholesterol Hypertension Surgical History Surgical History History of gastrectomy Hx of ventral hernia repair Family History Family History Sibling Hypertension Father Diabetes mellitus Other Heart disease Lung cancer Throat cancer Tongue cancer Social History Social History Smoking packs per day: 1 Smoking cigarettes per day: 20.0 Years smoked: 20 Smoking pack-years: 20.00 Smoking status: Former smoker Alcohol intake: current Alcohol use details: Socially 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 HEAD: Normocephalic, atraumatic. CHEST: Clear to auscultation. No respiratory distress. HEART: Regular rate and rhythm. Normal peripheral pulses. ABDOMEN: Soft, nontender, nondistended, large ventral hernia. : Normal external genitalia. Cervical os closed. Old blood within the vaginal vault without active hemorrhage. No discharge. EXTREMITIES: Normal range of motion. No edema. SKIN: Warm, dry, no rash. NEURO: Alert and oriented x3. PSYCH: Normal mood and affect. Course Course Emergency Course: Discussed diagnosis of threatened miscarriage and that blood is not coming from urine. Patient has no renal with whom she can follow-up. Discussed bleeding precautions and need for close follow-up and continued monitoring. Encouraged by the fact that patient had a normal ultrasound yesterday. Unknown whether it showed subchorionic hemorrhage. Patient with slight anemia and will start on iron. She was on iron during her last as well. Vital Signs Vital signs: Vital Signs Temperature 97.8 F 04/27/22 20:21 Pulse Rate 58 L 04/27/22 20:21 Respiratory Rate 16 04/27/22 20:21 Blood Pressure 163/70 H 04/27/22 20:21 Pulse Oximetry 98 04/27/22 20:21 Temperature 97.8 F 04/27/22 20:21 Pulse Rate 68 04/27/22 22:47 Respiratory Rate 18 04/27/22 22:47 Blood P
== END 2022-04-27 23:43 | disposition home or self-care (01) ==
PROVIDERS: Emergency Provider Emergency Medicine; PCP Internal Medicine Infectious Disease
DX: O20.0 Threatened abortion (principal); Z3A.01 Less than 8 weeks gestation of pregnancy; O99.011 Anemia complicating pregnancy, first trimester; D64.9 Anemia, unspecified
CPT/HCPCS: 36415; 81001; 84702; 85025; 85461; 99284

== ENCOUNTER 2022-05-02 08:40 | Emergency (ER) | payer BC, SELFPAY ==
--- NOTE | ~2022-05-02 | US_ITS ---
EXAMINATION: US OB transvaginal DATE: 05/02/2022 09:49 INDICATION: 12 weeks . No heart motions detected in the ER. TECHNIQUE: Real-time transabdominal and transvaginal obstetric ultrasound. FINDINGS: No prior studies for comparison. The uterus measures 10.5 x 5.4 x 8 cm. There is an intrauterine gestational sac, with pole iden tified. No pole is identified. No heart motions. No yolk sac. There is an intrauterine ge stational sac. There is debris and fluid in the cervix. The ovaries are not visualized. No free fluid in the pelvis. IMPRESSION: 1. Intrauterine gestational sac without evidence for pole or yolk sac. The mean sac diameter co rresponds to a 7 week 1 day gestation. This constellation of findings is compatible with failed pregn andrew/blighted ovum. Recommend follow-up with serial quantitative beta-hCG levels and ultrasound as cl inically indicated. Reviewed, dictated and finalized at [facility] IMPRESSION: 1. Intrauterine gestational sac without evidence for pole or yolk sac. Th e mean sac diameter corresponds to a 7 week 1 day gestation. This constellation of findings is compatible with failed /blighted ovum. Recommend follo w-up with serial quantitative beta-hCG levels and ultrasound as clinically noe cated.
[2022-05-02 08:45] VITALS: BP 141/82; PULSE 73; RESP 18; TEMP 36.8; O2SAT 99
--- NOTE | 2022-05-02 08:51 | ED.FEMALEGU ---
HPI - Female Genitourinary General Chief complaint: Vaginal Bleeding Stated complaint: Vaginal bleed Time Seen by Provider: 05/02/22 08:51 History of Present Illness HPI Narrative: Patient is a 37-year-old female who is currently about 11 weeks here for evaluation of vaginal bleeding over the past several days. Patient states that the bleeding started with spotting, for which she was evaluated at [facility] 6 days ago, and here 5 days ago. Her work-up here was reassuring, had mild anemia and was started on iron supplementation. additionally patient had an ultrasound at [facility] that showed intrauterine . She presents today because now she is passing blood clots, which was concerning to her. Has not bled through a menstrual pad. She denies any abdominal pain, shortness of breath, fevers, chills. She does states that she has a mild frontal headache that developed this morning. Denies any changes to her vision, leg swelling. She has not taken anything for her headache. She has an appointment with an OB Dr. at [place] next week, but she is unsure of their name. Her blood type is A+. Related Data Home Medications Medication Instructions Recorded Confirmed calcium carbonate 600 mg-vitamin cap PO 03/31/21 02/23/22 D3 5 mcg (200 unit) capsule prenat.vits,dutch,[id number] 1 tablet PO DAILY 03/31/21 02/23/22 folic acid 1 mg tablet 05/02/22 05/02/22 Allergies Allergy/AdvReac Type Severity Reaction Status Date / Time glimepiride [From Amaryl] Allergy Intermediate Other Verified 05/02/22 09:02 Review of Systems Review of Systems: Gen.: Denies fevers or chills Eyes: Denies eye pain or visual change ENT: Denies congestion Respiratory: Denies shortness of breath or cough CV: Denies chest pain or palpitations GI: Denies abdominal pain nausea, emesis or diarrhea reports vaginal bleeding. Denies burning, urgency, frequency or hematuria Musculoskeletal: Denies back pain or muscle pain Neuro: Reports headache. Denies numbness, tingling, weakness or focal weakness Skin: Denies rash Except as documented, all other systems reviewed and negative [facility] Past Medical History Medical History Diabetes High cholesterol Hypertension Surgical History Surgical History History of gastrectomy Hx of ventral hernia repair Family History Family History Sibling Hypertension Father Diabetes mellitus Other Heart disease Lung cancer Throat cancer Tongue cancer Social History Social History Smoking packs per day: 1 Smoking cigarettes per day: 20.0 Years smoked: 20 Smoking pack-years: 20.00 Smoking status: Former smoker Alcohol intake: current Alcohol use details: Socially 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 Head: Normocephalic and atraumatic. EYES: PERRLA/EOMI, conjunctivae clear NOSE: No nasal drainage EARS: External ear normal in appearance THROAT: Oropharynx is clear. Mucous membranes are moist. NECK: Supple. No adenopathy, no masses. RESPIRATORY: Airway patent, respirations nonlabored. Clear to auscultation bilaterally, no rales, rhonchi, wheezing. CARDIOVASCULAR: Regular rate and rhythm without murmurs, rubs, or gallops. ABDOMINAL: Normoactive bowel sounds. Soft, nontender, nondistended. No rebound tenderness or guarding. : Exam performed with tech assembler trim. Moderate amount of blood in vaginal vault, small clots noted. No brisk bleeding. Cervical os not visualized due to large vaginal rugae MUSCULOSKELETAL: Extremities are warm and well-perfused. Moves all extremitie
[2022-05-02 09:02] VITALS: BP 143/73; PULSE 70; RESP 18; O2SAT 99
[2022-05-02 09:20] LABS: Basophils Absolute Auto 0.1 K/mm3 (0.0-0.1); Basophils Percent Auto 0.8 % (0.2-1.2); Eosinophils Absolute Auto 0.3 K/mm3 (0-0.3); Eosinophils Percent Auto 3.1 % (0-4.4); Hemoglobin 11.2 g/dL (12.0-15.0); Immature Granulocyte Absolute 0.02 K/mm3 (0.00-0.031); Immature Granulocyte Percent A 0.2 % (0-0.5); Lymphocytes Absolute Auto 1.79 K/mm3 (0.9-3.2); Lymphocytes Percent Auto 21.6 % (18.3-44.2); Mean Corpuscular HGB Conc 30.3 g/dl (32-36); Mean Corpuscular Hemoglobin 25.3 pg (26-34); Mean Corpuscular Volume 83.5 fl (80-100); Mean Platelet Volume 10.3 fl (7.4-10.4); Monocytes Absolute Auto 0.7 K/mm3 (0.1-0.6); Neutrophils Absolute Auto 5.5 K/mm3 (1.3-6.7); Neutrophils Percent Auto 66.3 % (45.5-73.1); Platelet Count Result 304 k/mm3 (150-375); Red Blood Count 4.43 M/mm3 (4.2-5.4); Red Cell Distribution Width 15.5 % (11.5-14.5); White Blood Count 8.3 K/mm3 (4.5-10.0)
[2022-05-02 09:37] LABS: RBC Urine >75 /hpf (0-2); WBC Urine >75 /hpf
[2022-05-02 09:38] LABS: Appearance Urine Turbid (Clear); Color Urine Red (Yellow)
[2022-05-02 09:40] LABS: Add Urine Microscopic? YES
[2022-05-02] MEDS: ACETAMINOPHEN 325 MG TABLET 650 MG PO (09:43)
[2022-05-02 09:45] VITALS: BP 137/69; PULSE 63; RESP 18; O2SAT 99
[2022-05-02 09:47] VITALS: BP 137/69; PULSE 62; RESP 17
[2022-05-02 10:02] VITALS: BP 133/79; PULSE 69; RESP 19
[2022-05-02 10:53] VITALS: BP 166/98; PULSE 74; RESP 18; O2SAT 99
== END 2022-05-02 10:53 | disposition home or self-care (01) ==
PROVIDERS: Physician Assistant; Emergency Provider Emergency Medicine; PCP Internal Medicine Infectious Disease
DX: O20.0 Threatened abortion (principal); O16.1 Unspecified maternal hypertension, first trimester; O24.911 Unspecified diabetes mellitus in pregnancy, first trimester; O99.281 Endocrine, nutritional and metabolic diseases complicating pregnancy, first trimester; E78.00 Pure hypercholesterolemia, unspecified; Z3A.11 11 weeks gestation of pregnancy; Z90.3 Acquired absence of stomach [part of]; Z87.891 Personal history of nicotine dependence
CPT/HCPCS: 36415; 76817; 81001; 84702; 85025; 87086; 87088; 99284; A9270